=== PATIENT | female | born 1940 | race Caucasian/White ===

== ENCOUNTER → 2017-09-12 | Outpatient (CLI) | payer MEDICARE ==
[2017-09-12 14:12] LABS: BASOPHILS # (AUTO) 0.04 x10^3/uL (0-0.1); BASOPHILS % (AUTO) 1 % (0-1); EOSINOPHILS # (AUTO) 0.12 x10^3/uL (0-0.4); EOSINOPHILS % (AUTO) 3 % (1-7); LYMPHOCYTES # (AUTO) 1.34 x10^3/uL (1-3.4); LYMPHOCYTES % (AUTO) 27 % (22-44); MD NO; MEAN CORPUSCULAR HEMOGLOBIN 32.5 pg (27.0-34.8); MEAN CORPUSCULAR HGB CONC 33.8 g/dL (32.4-35.8); MEAN CORPUSCULAR VOLUME 96.1 fL (80-100); MEAN PLATELET VOLUME 9.4 fL (7.4-10.4); MONOCYTES # (AUTO) 0.47 x10^3/uL (0.2-0.8); MONOCYTES % (AUTO) 10 % (2-9); NEUTROPHILS # (AUTO) 2.97 x10^3/uL (1.8-6.8); NEUTROPHILS % (AUTO) 60 % (42-75); PLATELET COUNT 219 x10^3/uL (130-400); RED BLOOD COUNT 4.12 x10^6/uL (3.82-5.3)
[2017-09-12 14:22] LABS: ALBUMIN 4.1 g/dL (3.4-5.0); ANION GAP 5 mmol/L (5-15); CALCIUM 8.8 mg/dL (8.5-10.1); CHLORIDE 110 mmol/L (98-107)
[2017-09-12 14:29] LABS: MICROSCOPIC NOT IND
[2017-09-12 14:34] LABS: ALANINE AMINOTRANSFERASE 25 U/L (12-78); ALKALINE PHOSPHATASE 70 U/L (45-117); BILIRUBIN,TOTAL 0.7 mg/dL (0.2-1.0); CREATININE 0.88 mg/dL (0.55-1.02); TOTAL PROTEIN 6.9 g/dL (6.4-8.2)
== END | disposition home or self-care (01) ==
LOC: STAR 12:43
PROVIDERS: ATTEND Urology
DX: Z01.818 Encounter for other preprocedural examination (principal); C66.9 Malignant neoplasm of unspecified ureter
CPT/HCPCS: 36415; 80053; 81003; 85025; 87086; 93005

== ENCOUNTER 2017-09-22 05:35 | Inpatient (IN) | payer MEDICARE ==
[~2017-09-22] VITALS: Ht 167.6 cm; Wt 59.9 kg
[~2017-09-22 05:35] MED LIST: ARGI500C7 PO; CALC-451 PO; CHOL100012 PO; Immune Support PO; LEVO500C3 PO; MAGN200T PO; MULT-230 PO; MULT1TAB60 PO; OMEG10007 PO; RED600CA2 PO; UBID100C24 PO; UBID100C41 PO; [UNRECOGNIZED DRUG - CODE] TP; [UNRECOGNIZED DRUG - OTHER] PO
[2017-09-22] MEDS ORDERED: LACTATED RINGERS 1,000 ML IV SCH (06:06)
[2017-09-22] MEDS ORDERED: BUPIVACAINE 0.25% ONE (06:57)
[2017-09-22] MEDS ORDERED: THROMBIN 5,000 UNIT VIAL TP ONE (06:57)
[2017-09-22] MEDS ORDERED: EPINEPHRINE 1 MG/ML, 1ML ONE (06:58)
[2017-09-22] MEDS ORDERED: ACETAMINOPHEN 500 MG TABLET PO STA (07:07)
[2017-09-22] MEDS ORDERED: ONDANSETRON ODT 8 MG PO STA (07:07)
[2017-09-22] MEDS ORDERED: GABAPENTIN 300 MG CAPSULE PO STA (07:07)
[2017-09-22] MEDS ORDERED: OxyconTIN ER 10 MG TAB.ER PO STA (07:07)
[2017-09-22] MEDS ORDERED: GABAPENTIN 300 MG CAPSULE ONE ×2 (07:09)
[2017-09-22] MEDS ORDERED: OxyconTIN ER 10 MG TAB.ER ONE ×2 (07:09→07:10)
[2017-09-22] MEDS ORDERED: ACETAMINOPHEN 500 MG TABLET ONE ×2 (07:09)
[2017-09-22] MEDS ORDERED: ONDANSETRON ODT 8 MG ONE ×2 (07:09→07:10)
[2017-09-22] MEDS ORDERED: BUPIVACAINE/PF 0.5% ONE ×2 (07:11→07:14)
[2017-09-22] MEDS ORDERED: APREPITANT 40 MG CAPSULE ONE ×2 (07:18)
[2017-09-22] MEDS ORDERED: FENTANYL PF 250 MCG/5ML ONE (07:30)
[2017-09-22] MEDS ORDERED: MIDAZOLAM 1 MG/ML, 2ML ONE (07:30)
[2017-09-22] MEDS ORDERED: LIDOCAINE-MPF 2% ,5ML ONE (07:31)
[2017-09-22] MEDS ORDERED: PROPOFOL 10 MG/ML, 20ML ONE (07:31)
[2017-09-22] MEDS ORDERED: ROCURONIUM 10MG/ML,5ML ONE (07:32)
[2017-09-22] MEDS ORDERED: DEXMEDETOMIDINE 200 MCG/2 ML ONE (07:35)
[2017-09-22] MEDS ORDERED: CEFTRIAXONE 1,000 MG ONE (07:35)
[2017-09-22] MEDS ORDERED: DEXAMETHASONE 4 MG/ML, 1ML ONE ×2 (07:55)
[2017-09-22] MEDS ORDERED: PROPOFOL 50 ML ONE ×3 (08:03→11:00)
[2017-09-22] MEDS ORDERED: OMNIPAQUE 350 MG/ML, 50 ML BOTTLE ONE (08:30)
[2017-09-22] MEDS ORDERED: HYDROmorphone 1 MG/ML, 1ML IV PRN ×2 (09:30→12:30)
[2017-09-22] MEDS ORDERED: MEPERIDINE/PF 25MG/0.5ML IVPush PRN (09:30)
[2017-09-22] MEDS ORDERED: HALOPERIDOL 5 MG/ML IV PRN (09:30)
[2017-09-22] MEDS ORDERED: hydrALAzine 20 MG/ML, 1ML IV PRN (09:30)
[2017-09-22] MEDS ORDERED: PROMETHAZINE 25 MG/ML, 1ML IV PRN (09:30)
[2017-09-22] MEDS ORDERED: LABETALOL 5MG/ML, 20ML IV PRN (09:30)
[2017-09-22] MEDS ORDERED: FENTANYL PF 100 MCG/2ML IV PRN (09:30)
[2017-09-22] MEDS ORDERED: OXYcodone 5 MG/5 ML ORAL.SOL UDC PO PRN (09:30)
[2017-09-22] MEDS ORDERED: ONDANSETRON 2MG/ML, 2ML ONE (11:29)
[2017-09-22] MEDS ORDERED: EPHEDRINE 50 MG/ML, 1ML ONE (12:06)
[2017-09-22] MEDS ORDERED: OPIUM/BELLADONNA SUPP.RECT 16.2-30 MG PR PRN (12:30)
[2017-09-22] MEDS ORDERED: ONDANSETRON 2MG/ML, 2ML IV PRN (12:30)
[2017-09-22] MEDS ORDERED: EPHEDRINE 50 MG/ML, 1ML IVPush PRN (12:30)
[2017-09-22] MEDS: HYDROcodone/APAP 5/325 TABLET PO PRN (15:44)
[2017-09-22] MEDS: POTASSIUM CHLORIDE 20 MEQ in D5%-0.9% NACL 1,000 ML IV SCH (18:14)
[2017-09-22 19:30] VITALS: BP 101/61
[2017-09-23 02:00] VITALS: BP 105/58
[2017-09-23] MEDS: POTASSIUM CHLORIDE 20 MEQ in D5%-0.9% NACL 1,000 ML IV SCH ×3 (03:09→23:16)
[2017-09-23 05:28] LABS: ANION GAP 7 mmol/L (5-15); CALCIUM 7.5 mg/dL (8.5-10.1); CHLORIDE 110 mmol/L (98-107); CREATININE 1.39 mg/dL (0.55-1.02)
[2017-09-23 08:07] VITALS: BP 108/62
[2017-09-23] MEDS: [UNRECOGNIZED DRUG - OTHER] HOMEMEDPO SCH (10:03)
[2017-09-23] MEDS: HYDROcodone/APAP 5/325 TABLET PO PRN (10:06)
[2017-09-23 15:00] VITALS: BP 119/69
[2017-09-23 20:02] VITALS: BP 126/67
[2017-09-24 01:15] VITALS: BP 115/67
[2017-09-24] MEDS: HYDROcodone/APAP 5/325 TABLET PO PRN ×2 (02:03→15:28)
[2017-09-24 05:25] LABS: ANION GAP 5 mmol/L (5-15); CALCIUM 8.1 mg/dL (8.5-10.1); CHLORIDE 114 mmol/L (98-107); CREATININE 1.38 mg/dL (0.55-1.02)
[2017-09-24 07:22] VITALS: BP 125/71
[2017-09-24] MEDS: [UNRECOGNIZED DRUG - OTHER] HOMEMEDPO SCH (07:55)
[2017-09-24] MEDS: POTASSIUM CHLORIDE 20 MEQ in D5%-0.9% NACL 1,000 ML IV SCH ×2 (09:37→19:29)
[2017-09-24] MEDS ORDERED: BISACODYL 10 MG SUPP PR PRN (10:00)
[2017-09-24 13:15] VITALS: BP 137/81
[2017-09-24 20:46] VITALS: BP 177/94
[2017-09-24] MEDS: DOCUSATE 100 MG CAPSULE PO SCH (20:51)
[2017-09-24 22:02] VITALS: BP 164/84
[2017-09-25] VITALS (8 sets, daily range): BP systolic 163–198; BP diastolic 77–103
[2017-09-25] MEDS: ACETAMINOPHEN 325 MG TABLET PO PRN ×3 (01:36→15:09)
[2017-09-25 05:41] LABS: CHLORIDE 111 mmol/L (98-107)
[2017-09-25 05:45] LABS: ANION GAP 6 mmol/L (5-15); CREATININE 1.13 mg/dL (0.55-1.02)
[2017-09-25] MEDS: [UNRECOGNIZED DRUG - OTHER] HOMEMEDPO SCH (07:55)
[2017-09-25] MEDS: DOCUSATE 100 MG CAPSULE PO SCH ×2 (07:56→20:33)
[2017-09-25] MEDS ORDERED: hydrALAzine 20 MG/ML, 1ML IV PRN (13:00)
[2017-09-25 17:50] LABS: MICROSCOPIC AUTO
[2017-09-25 17:51] LABS: CULTURE INDICATED? NO
[2017-09-25] MEDS ORDERED: PHARMACY MAY ADJ FOR RENAL FX MC PRN (18:00)
[2017-09-26 03:24] VITALS: BP 169/87
[2017-09-26 05:06] LABS: ANION GAP 6 mmol/L (5-15); CALCIUM 8.3 mg/dL (8.5-10.1); CHLORIDE 107 mmol/L (98-107)
[2017-09-26] MEDS ORDERED: METOPROLOL TARTRATE 25 MG TABLET PO SCH (07:00)
[2017-09-26] MEDS: DOCUSATE 100 MG CAPSULE PO SCH (08:15)
[2017-09-26] MEDS ORDERED: POLYETHYLENE GLYCOL 17 GM PACKET PO SCH (09:00)
[2017-09-26] MEDS: [UNRECOGNIZED DRUG - OTHER] HOMEMEDPO SCH (09:00)
[2017-09-26] MEDS ORDERED: MAGNESIUM HYDROXIDE 8%, 30ML UDC PO SCH (09:00)
[2017-09-26] MEDS ORDERED: AMLODIPINE 5 MG TABLET PO SCH (09:00)
[2017-09-26 09:04] VITALS: BP 161/85
[2017-09-26] MEDS ORDERED: HYDR-3240 PO (13:31)
[2017-09-26] MEDS ORDERED: AMLO10TA4 PO (13:51)
[2017-09-26] MEDS ORDERED: METO25TA35 PO (13:52)
== END 2017-09-26 14:10 | disposition home or self-care (01) | DRG 656 ==
LOC: ORIP 05:35 → EDSTATUS 07:30 → 4NOR 14:15 → DCLOUNGE 09-26 13:48
PROVIDERS: ADMIT Urology; ATTEND Urology
PROC: 0TT64ZZ Resection of Right Ureter, Percutaneous Endoscopic Approach (ICD-10-PCS; 2017-09-22)
PROC: 0TP98DZ Removal of Intraluminal Device from Ureter, Via Natural or Artificial Opening Endoscopic (ICD-10-PCS; 2017-09-22)
PROC: BT1F1ZZ Fluoroscopy of Left Kidney, Ureter and Bladder using Low Osmolar Contrast (ICD-10-PCS; 2017-09-22)
PROC: 0TT04ZZ Resection of Right Kidney, Percutaneous Endoscopic Approach (ICD-10-PCS; principal; 2017-09-22 07:30)
PROC: 0T9B70Z Drainage of Bladder with Drainage Device, Via Natural or Artificial Opening (ICD-10-PCS; 2017-09-25)
DX: C65.1 Malignant neoplasm of right renal pelvis (principal); N17.0 Acute kidney failure with tubular necrosis; E03.9 Hypothyroidism, unspecified; Z90.710 Acquired absence of both cervix and uterus; F41.9 Anxiety disorder, unspecified; I10 Essential (primary) hypertension; K59.00 Constipation, unspecified; Z80.0 Family history of malignant neoplasm of digestive organs; Z83.3 Family history of diabetes mellitus; Z88.1 Allergy status to other antibiotic agents; E78.00 Pure hypercholesterolemia, unspecified
CPT/HCPCS: 36415; 74420; 80048; 81001; 82330; 82570; 82803; 82947; 84132; 84295; 85014; 85018; 86850; 86900; 88307; C1729; J0171; J0696; J1100; J2250; J2405; J2704; J3010; J3480; J3490; J7042; J8501; Q0162; Q9967; J0360; J7120